=== PATIENT | male | born 1995 | race Caucasian/White ===

== ENCOUNTER 2016-12-22 22:53 | Emergency (ER) | payer OTHER ==
[2016-12-22] MEDS ORDERED: NS 0.9% 1000 ML* 1,000 ML IV SCH (23:15)
[2016-12-22] MEDS ORDERED: NS 0.9% 1000 ML* 1,000 ML IV ONE (23:49)
[2016-12-23 00:29] LABS: Hematocrit 46 % (42-52); Hemoglobin 15.9 g/dl (14.0-18.0); Mean Corpuscular HGB Conc 35 g/dl (31-36); Mean Corpuscular Hemoglobin 30 pg (27-31); Mean Corpuscular Volume 86 fL (80-94); Mean Platelet Volume 9 um3 (7.4-10.4); Red Blood Count 5.32 10^6/ul (4.0-5.4); Red Cell Distribution Width 13 % (10.5-15); White Blood Count 7.8 10^3/ul (3.5-10.8)
[2016-12-23 00:40] LABS: Benzodiazepine Urine Screen None Detected (None Detect); C Reactive Protein 3.59 mg/L (< 5.00); EGFR African American 94.7 (>60); EGFR Non-African American 73.6 (>60); Globulin 2.6 g/dL (2-4); Potassium 3.7 mmol/L (3.5-5.0); Total Bilirubin 0.5 mg/dL (0.2-1.0); Total Protein 7.6 g/dL (6.4-8.9)
[2016-12-23 00:49] LABS: TSH (Thyroid Stimulating Horm) 2.38 mcIU/mL (0.34-5.60)
[2016-12-23 01:17] VITALS: BP 122/92
--- NOTE | 2016-12-23 14:38 | RAD ---
Indication: Palpitations. Atrial fibrillation. Comparison: No relevant prior exams available on the [facility] PACS for comparison. Technique: Upright AP 1120 hours Report: Clear lungs and pleural spaces. Negative for pneumothorax. The heart, pulmonary vasculature, and mediastinal contours are unremarkable. Unremarkable osseous structures and soft tissue contours. IMPRESSION: No evidence for acute intrathoracic disease.
--- NOTE | 2017-01-04 15:25 | ED ---
Santino Oconnell Thomas, scribed for Kody Baum MD on 12/22/16 at 2347 . Palpitations / Dysrhythmia - HPI Summary HPI Summary: The pt is a 21 y/o M presenting to the ED c/o palpitations characterized as irregular that began today at 22:00. 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 The patient had a shot, three beers, and then shotgunned another beer when he started to feels the palpitations. In the examination room, the palpitations are alleviated by deep breaths. Pt additionally c/o subjective dehydration and dark urine. Pt denies CP, SOB, and any pains. The patient takes Zyrtec, Mucinex, and guanfacine. This is the first time that he has taken Mucinex in a while. PMHx: WPW. PSHx: ablation for WPW (14 ). SHx: no smoking, weekly alcohol use, no illicit drug use. FHx: negative for WPW. He is accompanied by three friends. - History of Current Complaint Chief Complaint: EDDysrhythmPalp Time Seen by Provider: 12/22/16 23:37 Hx Obtained From: Patient, Family/Hardware Sales Assistant - four friends in room Onset/Duration: Sudden Onset, Lasting Hours - onset at 22:00, Still Present Timing: Constant Character: Irregular Aggravating: Nothing Alleviating: Nothing - Allergy/Home Medications Allergies/Adverse Reactions: Allergies Allergy/AdvReac Type Severity Reaction Status Date / Time No Known Allergies Allergy Verified 12/22/16 23:13 PMH/Surg Hx/FS Hx/Imm Hx Previously Healthy: No Cardiovascular History: Reports: Other Cardiovascular Problems/Disorders - Hx WPW Respiratory History: Denies: Hx Chronic Obstructive Pulmonary Disease (COPD) - Surgical History Surgery Procedure, Year, and Place: Ablation for WPW (14) Infectious Disease History: Denies: Traveled Outside the [place] in Last 30 Days - Family History Known Family History: Negative: Other - NEG: WPW - Social History Alcohol Use: Weekly Hx Substance Use: No Substance Use Type: Reports: None Hx Tobacco Use: No Smoking Status (MU): Never Smoked Tobacco Review of Systems Positive: Other - POS: subjective dehydration. Negative: Fever, Chills Negative: Erythema - eyes Negative: Sore Throat Positive: Palpitations - characterized as irregular, onset today at 22:00. Negative: Chest Pain Negative: Shortness Of Breath, Cough Negative: Abdominal Pain, Vomiting, Nausea Positive: other - POS: dark urine. Negative: dysuria, hematuria Negative: Myalgia, Edema - legs, Other - NEG: any pain Negative: Rash Neurological: Other - NEG: dizziness All Other Systems Reviewed And Are Negative: Yes Physical Exam - Summary Physical Exam Summary: Constitutional: Well-developed, Well-nourished, Alert. (-) Distressed Skin: Warm, Dry HENT: Normocephalic; Atraumatic Eyes: Conjunctiva normal Neck: Musculoskeletal ROM normal neck. (-) JVD, (-) Stridor, (-) Tracheal deviation Cardio: The patient has a rapid irregular pulse. When he takes deep breaths, he progresses into a normal heart rate with a regular rhythm. Heart sounds normal; Intact distal pulses; The pedal pulses are 2+ and symmetric. Radial pulses are 2 + and symmetric. (-) Murmur Pulmonary/Chest wall: Effort normal. (-) Respiratory distress, (-) Wheezes, (-) Rales Abd: Soft, (-) Tenderness, (-) Distension, (-) Guarding, (-) Rebound Musculoskeletal: (-) Edema Lymph: (-) Cervical adenopathy Neuro: Alert, Oriented x3 Psych: Mood and affect Normal Triage Information Reviewed: Yes Vital Signs On Initial Exam: Initial Vitals Temp Pulse Resp BP Pulse Ox 99 F 126 20 128/54 97 12/22/16 23:00 12/22/16 23:00 12/22/16 23:00 12/22/16 23:00 12/22/16 23:00 Vital Signs Reviewed: Yes Diagnostics - Vital Signs Vital Signs Temp Pulse Resp BP Pulse Ox 12/22/16 23:25 99 F 126 19 128/54 99 12/22/16 23:13 128/71 12/22/16 23:00 99 F 126 20 128/54 97 - Laboratory Result Diagrams: 12/22/16 23:55 12/22/16 23:55 Lab Statement: Any lab studies that have been ordered have been reviewed, and results considered in the medical decision making process. - Radiology CXR Xray Interpretation: No Acute Changes - No acute disease. Radiology Interpretation Completed By: ED Physician - EKG 23:06 Cardiac Rate: NL - 93 BPM EKG Interpretation: A-Fib. No STEMI. 23:47 Cardiac Rate: NL - 85 BPM EKG Interpretation: NSR. No STEMI. Re-Evaluation - Re-Evaluation First Eval Re-Evaluation Time: 00:26 Change: Improved Comment: He is improved. Course/Dx - Course Assessment/Plan: The pt is a 21 y/o M presenting to the ED c/o palpitations characterized as irregular that began today at 22:00. 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 The patient had a shot, three beers, and then shotgunned another beer when he started to feels the palpitations. In the examination room, the palpitations are alleviated by deep breaths. Pt additionally c/o subjective dehydration and dark urine. Pt denies CP , SOB, and any pains. The patient takes Zyrtec, Mucinex, and guanfacine. This is the first time that he has taken Mucinex in a while. PMHx: WPW. PSHx: ablation for WPW (14). SHx: no smoking, weekly alcohol use, no illicit drug use. FHx: negative for WPW. He is accompanied by three friends. Re-evaluation at 00:26 shows that the patients condition has improved. In the ED course the patient was given IV fluids. Bloodwork shows creatinine 1.25. Urine toxicology shows serum alcohol 25. EKG at 23:06 shows A-Fib at 93 BPM with no STEMI. EKG at 23:47 shows No STEMI. CXR shows no acute disease. The patient was diagnosed with SVT, dehydration, URI, and medication adverse effect. He will be discharged home. He is stable. - Diagnoses Provider Diagnoses: SVT (supraventricular tachycardia), Dehydration, Medication adverse effect, URI (upper respiratory infection) Discharge - Discharge Plan Condition: Stable Disposition: HOME Patient Education Materials: Supraventricular Tachycardia (ED), Dehydration (ED ), Upper Respiratory Infection (ED) [facility] [Primary Care Provider] - 5 Days Additional Instructions: Follow up at [facility] in a week. Return to the emergency department for any changing or worsening symptoms. The documentation as recorded by the Santino luke Thomas accurately reflects the service I personally performed and the decisions made by Bautista lenz Jerry, MD.
== END 2016-12-23 01:18 | disposition home or self-care (01) ==
LOC: ED 22:53
DX: I47.1 Supraventricular tachycardia (principal); R00.2 Palpitations; E86.0 Dehydration; J06.9 Acute upper respiratory infection, unspecified; T50.905A Adverse effect of unspecified drugs, medicaments and biological substances, initial encounter; Y92.9 Unspecified place or not applicable
CPT/HCPCS: 36415; 71010; 80053; 80307; 80320; 83605; 83690; 83735; 83880; 84443; 84484; 85025; 85610; 85730; 86140; 93005; 99282; G0480